=== PATIENT | female | born 1975 | race Two or more races ===

== ENCOUNTER → 2022-02-06 | Day surgery (SDC) | payer OTHER | END | disposition home or self-care (01) | LOC: JRADIR 10:07 | PROVIDERS: ATTEND Internal Medicine Endocrinology, Diabetes & Metabolism | PROC: 0G9H3ZX Drainage of Right Thyroid Gland Lobe, Percutaneous Approach, Diagnostic (ICD-10-PCS; principal; 2022-02-06) | DX: E04.1 Nontoxic single thyroid nodule (principal) | CPT/HCPCS: 10021; 76942; 88173; 88305-TC ==

== ENCOUNTER 2024-01-15 14:10 | Inpatient (IN) | payer OTHER ==
[2024-01-15 14:28] VITALS: BMI 26.9
[2024-01-15 15:25] LABS: EPI CELLS 12 /uL (0-25.1); HYALINE CASTS 1 /uL (0-3.1); PH,URINE 7.5 (5.0-8.0); URINE APPEARANCE CLEAR; URINE BACTERIA 4096 /uL (0-1359); URINE BILIRUBIN NEGATIVE (NEGATIVE); URINE COLOR YELLOW; URINE GLUCOSE (UA) NEGATIVE (NEGATIVE); URINE KETONE NEGATIVE (NEGATIVE); URINE LEUK ESTERASE 2+ (NEGATIVE); URINE NITRITE NEGATIVE (NEGATIVE); URINE PROTEIN TRACE (NEGATIVE); URINE RBC 22 /uL (0-23.9); URINE UROBILINOGEN 0.2 mg/dL (0.2-1.0); URINE WBC 293 /uL (0-25.8)
[2024-01-15] MEDS ORDERED: ACETAMINOPHEN INJECTION 100 ML ONE (15:27)
[2024-01-15] MEDS: ACETAMINOPHEN 1000 MG/100 ML BAG IVPB ONE (15:45)
[2024-01-15] MEDS ORDERED: CEFTRIAXONE 1 GM/50 ML BAG ONE (15:52)
[2024-01-15 16:03] LABS: BASO % 0.3 % (0-2.0); EOS % 0.2 % (0-4.5); HEMATOCRIT 36.5 % (32.4-45.2); HEMOGLOBIN 12.3 GM/dL (10.7-15.3); LYMPH % 15.1 % (8-40); MCH 29.6 pg (25.7-33.7); MCHC 33.7 g/dl (32.0-36.0); MEAN CELL VOLUME 87.9 fl (80-96); MEAN PLT VOLUME 9.5 fl (7.5-11.1); MONO % 7.5 % (3.8-10.2); NEUT % 76.9 % (42.8-82.8); PLATELET COUNT 283 10^3/uL (134-434); RBC 4.16 M/mm3 (3.60-5.2); RDW 12.6 % (11.6-15.6); WHITE BLOOD COUNT 9.1 K/mm3 (4.0-10.0)
[2024-01-15 16:05] LABS: POTASSIUM 4.3 mmol/L (3.5-5.1)
[2024-01-15 16:08] LABS: ALBUMIN 3.9 g/dl (3.4-5.0); BLOOD UREA NITROGEN 12.2 mg/dL (7-18)
[2024-01-15 16:11] LABS: CREATININE 0.7 mg/dL (0.55-1.3)
[2024-01-15 16:12] LABS: BILIRUBIN,TOTAL 0.6 mg/dL (0.2-1); TOT PROT 7.6 g/dl (6.4-8.2)
[2024-01-15 17:02] LABS: HIV INTERPRETATION NEGATIVE (NEGATIVE)
[2024-01-15] MEDS: CEFTRIAXONE 1,000 MG in DEXTROSE 5%-WATER - 50 ML IVPB ONE (17:59)
[2024-01-15] MEDS: morphine SULFATE 4 MG/ML VIAL IVPUSH ONE (19:28)
[2024-01-15] MEDS: IBUPROFEN 800 MG/8 ML IJ IVPB ONE (21:05)
[2024-01-15] MEDS: HEPARIN NA (PORCINE) 5,000 UNITS/ML 1ML VIAL SQ SCH (21:08)
[2024-01-15] MEDS: POTASSIUM CHLORIDE 10 MEQ in SODIUM CHLORIDE 0.45% 1,000 ML IVPB SCH (22:21)
[2024-01-16] MEDS: ONDANSETRON *ODT* 4 MG TABLET SL ONE (03:02)
[2024-01-16] MEDS: ACETAMINOPHEN 1000 MG/100 ML BAG IVPB PRN (05:42)
[2024-01-16 09:52] LABS: BASO % 0.2 % (0-2.0); HEMATOCRIT 32.4 % (32.4-45.2); HEMOGLOBIN 11.1 GM/dL (10.7-15.3); LYMPH % 16.4 % (8-40); MCH 29.8 pg (25.7-33.7); MCHC 34.1 g/dl (32.0-36.0); MEAN CELL VOLUME 87.3 fl (80-96); MEAN PLT VOLUME 9.3 fl (7.5-11.1); MONO % 6.7 % (3.8-10.2); NEUT % 76.7 % (42.8-82.8); PLATELET COUNT 221 10^3/uL (134-434); RBC 3.71 M/mm3 (3.60-5.2); RDW 12.2 % (11.6-15.6); WHITE BLOOD COUNT 10.5 K/mm3 (4.0-10.0)
[2024-01-16] MEDS: CEFTRIAXONE 1 GM in DEXTROSE 5%-WATER - 50 ML IVPB SCH (10:18)
[2024-01-16 10:59] LABS: POTASSIUM 3.6 mmol/L (3.5-5.1)
[2024-01-16 11:00] LABS: ALBUMIN 3.4 g/dl (3.4-5.0)
[2024-01-16 11:03] LABS: CALCIUM 8.5 mg/dL (8.5-10.1); CREATININE 0.6 mg/dL (0.55-1.3); MAGNESIUM 2.1 mg/dL (1.8-2.4)
[2024-01-16 11:04] LABS: PHOSPHOROUS 3.2 mg/dL (2.5-4.9)
[2024-01-16 11:05] LABS: BILIRUBIN,TOTAL 1.5 mg/dL (0.2-1)
[2024-01-16 11:07] LABS: TOT PROT 6.6 g/dl (6.4-8.2)
[2024-01-16] MEDS: PIPERACILLIN/TAZOB 4.5 GM 4.5 GM in DEXTROSE 5%-WATER 100 ML IVPB SCH ×2 (15:04→18:31)
[2024-01-16] MEDS ORDERED: PROPOFOL 20 ML ONE (15:09)
[2024-01-16] MEDS ORDERED: MIDAZOLAM HCL 2 MG/2 ML SINGLE DOSE VIAL ONE (15:10)
[2024-01-16] MEDS ORDERED: ONDANSETRON 4 MG/2 ML VIAL IVPUSH PRN ×2 (15:13→17:11)
[2024-01-16] MEDS: LACTATED RINGERS SOLUTION 1,000 ML IV SCH (15:15)
[2024-01-16] MEDS: PIPERACILLIN/TAZOBACTAM 3.375 GM VIAL IVPB ONE (15:30)
[2024-01-16] MEDS ORDERED: PHENYLEPHRINE HCL 10 MG/1 ML SINGLE DOSE VIAL ONE (15:36)
[2024-01-16] MEDS: LIDOCAINE HCL 2% JELLY (5 ML/TUBE) TP ONE (15:52)
[2024-01-16] MEDS ORDERED: ACETAMINOPHEN 1000 MG/100 ML BAG IVPB PRN (17:11)
[2024-01-16] MEDS ORDERED: LACTATED RINGERS SOLUTION 1,000 ML IV SCH (17:11)
[2024-01-16 17:52] VITALS: RESP 18
[2024-01-16] MEDS: HEPARIN NA (PORCINE) 5,000 UNITS/ML 1ML VIAL SQ SCH (21:19)
[2024-01-16 21:54] LABS: INR 1.3 (0.83-1.09); PROTHROMBIN TIME (PATIENT) 14.6 SEC (9.7-13.0)
[2024-01-16] MEDS: DEXAMETHASONE 0.5 MG TABLET PO ONE (22:18)
[2024-01-17] MEDS: POTASSIUM CHLORIDE 10 MEQ in SODIUM CHLORIDE 0.45% 1,000 ML IVPB SCH (01:19)
[2024-01-17 10:28] LABS: HEMATOCRIT 34.3 % (32.4-45.2); MCH 30.4 pg (25.7-33.7); MCHC 34.9 g/dl (32.0-36.0); MEAN CELL VOLUME 87.3 fl (80-96); MEAN PLT VOLUME 9.3 fl (7.5-11.1); PLATELET COUNT 232 10^3/uL (134-434); RBC 3.93 M/mm3 (3.60-5.2); RDW 12.2 % (11.6-15.6); WHITE BLOOD COUNT 10.5 K/mm3 (4.0-10.0)
[2024-01-17 10:46] LABS: POTASSIUM 4.4 mmol/L (3.5-5.1)
[2024-01-17 10:49] LABS: ALBUMIN 3.4 g/dl (3.4-5.0); BLOOD UREA NITROGEN 9.6 mg/dL (7-18)
[2024-01-17 10:50] LABS: CALCIUM 8.8 mg/dL (8.5-10.1)
[2024-01-17 10:52] LABS: CREATININE 0.7 mg/dL (0.55-1.3)
[2024-01-17 10:54] LABS: BILIRUBIN,TOTAL 0.7 mg/dL (0.2-1); TOT PROT 7.3 g/dl (6.4-8.2)
[2024-01-17 12:58] VITALS: BP 110/70; PULSE 70; TEMP 98.4
== END 2024-01-17 13:28 | disposition home or self-care (01) | DRG 463 ==
LOC: JER 14:10 → JERBED 15:19 → J6S 18:50
PROVIDERS: ADMIT Family Medicine; ATTEND Family Medicine
PROC: BT1DZZZ Fluoroscopy of Right Kidney, Ureter and Bladder (ICD-10-PCS; 2024-01-16)
PROC: 0T768DZ Dilation of Right Ureter with Intraluminal Device, Via Natural or Artificial Opening Endoscopic (ICD-10-PCS; principal; 2024-01-16 13:00)
DX: N12 Tubulo-interstitial nephritis, not specified as acute or chronic (principal); N13.30 Unspecified hydronephrosis; E03.9 Hypothyroidism, unspecified
CPT/HCPCS: 36415; 74176-TC; 76000-TC-FY; 80053; 81003; 82024; 82088; 83735; 84100; 84443; 84703; 85025; 85027; 85610; 86803; 87040; 87086; 87186; 87389; 94760; 99285-25; C2617; J0131; J1644; Q0162